=== PATIENT | male | born 1975 | race Caucasian/White ===

== ENCOUNTER 2019-02-15 18:06 | Emergency (ER) | payer SELFPAY ==
[2019-02-15] MEDS ORDERED: predniSONE 20 MG TAB ONE (18:36)
[2019-02-15] MEDS ORDERED: Famotidine 20 MG TAB ONE (18:37)
== END 2019-02-15 18:48 | disposition home or self-care (01) ==
LOC: SCSER 18:06
DX: T63.461A Toxic effect of venom of wasps, accidental (unintentional), initial encounter (principal); F17.200 Nicotine dependence, unspecified, uncomplicated; Z71.6 Tobacco abuse counseling
CPT/HCPCS: 99406; J7512